=== PATIENT | male | born 1955 | race Caucasian/White ===

== ENCOUNTER 2025-04-10 05:48 | Observation (INO) | payer OTHER, SELFPAY ==
[2025-04-10] VITALS (22 sets, daily range): BP systolic 99–146; BP diastolic 66–97; PULSE 50–97; BMI 25.3; BMI 25.0
[2025-04-10 02:14] LABS: Glucose - Point of Care 98 mg/dl (70-99)
[2025-04-10 02:21] LABS: Hematocrit 40.8 % (39.0-52.0); Hemoglobin 13.6 g/dL (13.0-18.0); Mean Corp Hgb Conc. 33.3 g/dL (33.0-37.0); Mean Corpuscular Volume 88.3 fL (80.0-94.0); Nucleated Red Blood Cells % 0 % (-); Platelet Count 215 10^3/uL (130-400); Red Cell Dist. Width 13.2 % (11.5-14.5)
[2025-04-10 02:29] LABS: INR 1.10; PT 14.4 Sec (11.4-14.6)
[2025-04-10 02:30] LABS: APTT 24.3 Sec (23.4-35.0)
[2025-04-10 02:33] LABS: ALT (SGPT) 18 U/L (0-50); AST (SGOT) 21 U/L (17-59); Albumin 4.5 g/dl (3.5-5.0); Alkaline Phosphatase 58 U/L (38-126); Blood Urea Nitrogen 41 mg/dl (9-20); Calcium 9.5 mg/dl (8.4-10.2); Carbon Dioxide 26 mmol/L (22-30); Chloride 103 mmol/L (98-107); Estimated Creatinine Clearance 49 ml/min; Glucose 111 mg/dl (70-99); Magnesium 2.3 mg/dl (1.6-2.3); Potassium 3.8 mmol/L (3.5-5.1); Sodium 135 mmol/L (135-145); Total Protein 7.0 g/dl (6.3-8.2); eGFR 46.35
[2025-04-10] MEDS: NSS 1000 IV (02:42)
[2025-04-10 02:46] LABS: Troponin I < 0.012 ng/ml
[2025-04-10 03:03] LABS: TSH 6.71 uIU/ml (0.47-4.68)
--- NOTE | 2025-04-10 04:19 | ED.GENMED ---
History of Present Illness
General
Chief Complaint: Fainting/Passed Out
Source: patient
Exam Limitations: none
Time Seen by Provider: 04/10/25 02:03
Nursing documentation reviewed up to this point in time: agreed with
History of Present Illness
History of Present Illness:
Note:
CHIEF COMPLAINT(S)
Syncope.
HISTORY OF PRESENT ILLNESS
The patient is a 69-year-old male with a history of myocardial infarction and a two-vessel coronary artery bypass graft surgery, presenting after a syncopal episode. The patient reported sitting up on the side of his bed around midnight when he
began to feel lightheaded and subsequently fainted. He remembers leaning against the wall before passing out, which lasted approximately 30 seconds according to his children, who heard a loud noise but did not witness any seizure-like activity. Upon
regaining consciousness, the patient experienced nausea and vomited. He recalls consuming a can of soda, chips, and three marijuana products about an hour before the incident. The patient denies experiencing chest pain, dyspnea, abdominal pain, or
significant headache at the time of the episode. He reported feeling lightheaded upon standing up and possibly consumed less fluid than usual that day.
PAST MEDICAL AND SURGICAL HISTORY
- Myocardial infarction more than 10 years ago.
- Two-vessel coronary artery bypass graft surgery.
SOCIAL HISTORY
The patient reports using marijuana products approximately three to four times a week.
PHYSICAL EXAM
General: Alert, no acute distress.
Skin: Warm, dry.
Head: Normocephalic, atraumatic.
Neck: Supple, trachea midline.
Eye, Ears, Nose, Mouth and Throat: Oral mucosa moist.
Cardiovascular: Normal peripheral perfusion, no edema.
Respiratory: Respirations are non-labored.
Gastrointestinal: Abdomen nondistended.
Back: Normal range of motion, normal alignment.
Musculoskeletal: Normal range of motion, normal strength.
Neurological: Alert and oriented to person, place, time, and situation, no focal neurological deficit observed.
Psychiatric: Cooperative, appropriate mood & affect.
PLAN
- Check vital signs and perform orthostatic changes.
- Initiate intravenous fluids.
- Obtain blood work and laboratory investigations.
- Consider a computed tomography scan of the head based on clinical findings.
- Perform a full cardiac workup.
- Monitor the patient for improvement post fluid administration and reassess vitals.
DIFFERENTIAL DIAGNOSIS
The differential diagnosis includes, in no particular order and is not limited to:
- Vasovagal syncope
- Orthostatic hypotension
- Cardiac arrhythmia
- Transient ischemic attack
- Hypoglycemia
- Dehydration
- Neurological event (e.g., seizure)
- Cerebrovascular accident
- Myocardial infarction
- Electrolyte imbalance
Disposition:
SUMMARY OF ENCOUNTER
The patient, a 69-year-old male, was brought to the emergency department after experiencing a syncopal episode at home. While undergoing tests in the emergency department, he experienced bradycardia with a heart rate dropping to 37 beats per minute,
causing him to feel as if he was going to pass out. Given this new bradycardia and his symptoms, the patient will be admitted to the hospital for further evaluation and management of symptomatic bradycardia.
DISPOSITION
Admit.
ASSESSMENT
The patient experienced symptomatic bradycardia in the emergency department after a syncopal episode at home.
PLAN
The patient will be admitted for continued monitoring and management of bradycardia. A full cardiac workup will be conducted to identify any underlying causes.
MEDICAL DECISION MAKING
1. Number and Complexity of Problems Addressed: Chronic conditions affecting care include a history of myocardial infarction and two-vessel coronary artery bypass graft surgery. Potential differential diagnoses include vasovagal syncope, orthostatic
hypotension, cardiac arrhythmia, transient ischemic attack, neurological event, cerebrovascular accident, dehydration, and electrolyte imbalance.
2. Data:
- Category 1:
- Emergency department records reviewed.
- Tests considered during management include a full cardiac workup.
3. Risk:
The patient is being admitted for further evaluation and management due to the complexity and risk associated with his symptomatic bradycardia. The potential for cardiac arrhythmia and need for continuous monitoring increased the risk profile in
this scenario.
DIAGNOSIS
- Symptomatic Bradycardia (ICD-10: R00.1)
Phy Exam
Physical Exam
Physical Exam:
.
Course
Orders/Labs/Results
Orders:
Orders
04/10/25 02:01
Electrocardiogram (*1) Urgent
Reason for Study: Syncope
EKG- Treatment ONCE
04/10/25 02:10
Complete Blood Count/With Diff Urgent
Comprehensive Metabolic Panel Urgent
Magnesium Urgent
NT-proBNP Urgent
PTT Urgent
Prothrombin Time Urgent
TSH Urgent
Troponin I Urgent
04/10/25 02:34
Atropine Sulfate [Atropine 0.1 mg/ml Syringe] 1 mg .ROUTE .STK-MED ONE
04/10/25 02:42
0.9% Sodium Chloride 1000 ml [Nss] 1,000 ml IV BOLUS
04/10/25 04:21
CR Chest - 2 Views Urgent
Comment:
Reason For Exam: syncope
04/10/25 05:32
Admit/Transfer Patient As Directed
Co-Sign Provider:
Level of Care: Observation services
Assign to:: Telemetry
Physician / Group: Dinesh
Diagnosis: Syncope
Reason for Telemetry: Syncope
Date to Stop Telemetry: 04/12/25
Time to Stop Telemetry: 11:00
04/10/25 05:33
PRN Pain Medication Management As Directed
May give lesser potent ordered pain med per pt: Yes
preference::
Protocol:: Medication orders for pain may be administered in a
manner that supports deferring to patient preference
when the pt is:
- Requesting an ordered lesser potent pain medication.
Least to most potent pain medications are defined
as: acetaminophen < NSAID < tramadol < opioids
(morphine, oxycodone, hydromorphone).
- Requesting a lesser dose of the same medication IF
ORDERED.
- Requesting a less intrusive route of administration
if both routes are prescribed by the provider (PO <
IV).
04/10/25 05:34
Code Status As Directed
Resuscitation Status: Full Code
04/12/25 11:00
DC Protocol for Telemetry ONCE
Abnormal Lab Results
04/10/25
02:10
RBC 4.62 L 10^6/uL
(4.70-6.10)
Absolute Monos (auto) 0.8 H 10^3/uL
(0.1-0.6)
Eosinophils % 6.6 H %
(0-6)
BUN 41 H mg/dl
(9-20)
Creatinine 1.6 H mg/dL
(0.7-1.3)
Glucose 111 H mg/dl
(70-99)
TSH 6.71 H uIU/ml
(0.47-4.68)
04/10/25 02:10
04/10/25 02:10
Vital Signs
Initial and Last Documented VS:
Initial Vital Signs
Temp Pulse Resp BP Pulse Ox
97.7 F 56 15 120/97 98
04/10/25 02:02 04/10/25 02:02 04/10/25 02:02 04/10/25 02:02 04/10/25 02:02
Last Documented Vital Signs
Temp Pulse Resp BP Pulse Ox
97.7 F 66 17 124/74 97
04/10/25 02:02 04/10/25 04:15 04/10/25 04:15 04/10/25 04:00 04/10/25 04:21
*Pulse Oximetry
SaO2: 97
Oxygen Mode of Delivery: Room air
Patient hypoxic: no
*Critical Care Note
Total Time (30-74mins, 75-104mins- exclusive of procedures): Not Applicable
ED Attending Note
-
Portions of this chart may have been created with voice recognition software.� Occasional wrong word or��sound alike� substitutions may have occurred due to the inherent limitations of voice recognition software.
Discharge Plan
Departure
Patient Disposition: Admit
Date of Disposition: 04/10/25
Time of Disposition: 04:24
Presentation/result/management discussed w/ accepting MD/DO: Hospitalist
Discharge Problem:
Symptomatic bradycardia, Syncope and collapse
Prescriptions:
No Action
ropinirole 1 mg Tablet
1 mg PO TID
clopidogrel [Plavix] 75 mg Tablet
75 mg PO DAILY
triamterene-hydrochlorothiazid 37.5-25 mg Tablet
1 tab PO DAILY
bupropion HCl 450 mg Tablet Extended Release 24 Hr
450 mg PO DAILY
losartan 50 mg Tablet
50 mg PO DAILY
simvastatin 20 mg Tablet
20 mg PO HS
docusate sodium [Colace] 100 mg Capsule
100 mg PO DAILY
propranolol [Inderal] 20 mg Tablet
20 mg PO DAILY
omeprazole 20 mg Tablet,Delayed Release (Dr/Ec)
20 mg PO DAILY
Referrals:
Spenser Ramirez MD [Family Provider, Internal Medicine]
Interventions
Interventions:
*Risk Screen - Suicide Last Done: 04/10/25 02:08
*General Assessment Last Done: 04/10/25 02:08
*Neglect/Abuse Screening Last Done: 04/10/25 02:08
*ED- Fall Risk Assessment Last Done: 04/10/25 02:08
*ED COVID-19 Vaccine History Last Done: 04/10/25 02:08
*ED Influenza Vaccine History Last Done: 04/10/25 02:08
ED- Cardiac Assessment Last Done: 04/10/25 02:08
ED- Neurological Assessment Last Done: 04/10/25 02:08
Discharge Date and Time
Print Language: JORDANIAN
--- NOTE | 2025-04-10 05:36 | HPS.HSE ---
Family Physician
-
Family Physician: Spenser Ramirez
Chief Complaint
-
Syncope
History of Present Illness
Patient is a 69y M with PMH significant for ASCVD and hypertension who presents to ED complaining of syncopal episode at home. Patient is visiting family locally. His daughter has a baby and patient woke in the middle of the night
tonight to assist with care. He got up and felt somewhat lightheaded. He stood and then slumped against a door frame and passed out. He came to moments later, felt very nauseated and had a few episodes of emesis. Patient continued to feel
lightheaded and nauseated and presented to the ED for further evaluation.
He denies any chest pain, palpitations, dyspnea, etc.
He denies any prior h/o similar symptoms / episodes.
While resting comfortably / sleeping here in the ED - patient was noted to have a heart rate into the 30s.
At the time of my exam he feels much improved from prior. He is tired but otherwise feels well. His pulse has been consistently in the 60s / 70s.
Medical History
Past Medical History
Past Medical History: Reports Other
Additional Past Medical History:
ASCVD
Hypertension
GERD
Anxiety / Depression
Benign Tremors
Restless Leg Syndrome
Past Surgical History: Reports Other
Additional Past Surgical History:
PTCA with eStent (x 2)
CABG x 2
T&A
Social History
Tobacco: Vaping (Marijuana vape occasionally)
Alcohol: None
Drug: Marijuana
Family History
Family History: Not pertinent
Allergies / Home Medications
Allergies reflects when Allergies were last updated in etouches.
Home Medications with original date entered in etouches
Allergy/Medication List:
Allergies
Allergy/AdvReac Type Severity Reaction Status Date / Time
Penicillins Allergy Mild Rash Verified 04/10/25 02:31
Home Medications
bupropion HCl 450 mg 24 hr tablet, extended release 450 mg PO DAILY 04/10/25
clopidogrel 75 mg tablet (Plavix) 75 mg PO DAILY 04/10/25
docusate sodium 100 mg capsule (Colace) 100 mg PO DAILY 04/10/25
losartan 50 mg tablet 50 mg PO DAILY 04/10/25
omeprazole 20 mg tablet,delayed release 20 mg PO DAILY 04/10/25
propranolol 20 mg tablet 20 mg PO DAILY 04/10/25
ropinirole 1 mg tablet 1 mg PO TID 04/10/25
simvastatin 20 mg tablet 20 mg PO HS 04/10/25
triamterene 37.5 mg-hydrochlorothiazide 25 mg tablet 1 tab PO DAILY 04/10/25
Review of Systems
-
History Source: Patient
A 12 point ROS was completed and negative except as noted: Yes
Constitutional: Reports Fatigue; Denies Fever or Chills
EENT: Denies Sore Throat
Respiratory: Denies Cough or Trouble Breathing
Cardiac: Reports Syncope; Denies Chest Pain, Diaphoresis or Palpitations
Abdomen/GI: Reports Nausea and Vomiting; Denies Abdominal Pain or Diarrhea
: Denies Dysuria or Flank Pain
Musculoskeletal: Denies Joint Pain or Edema
Neurological: Reports Dizzy; Denies Headache
Psych: Denies Depression or Anxiety
Physical Exam
Vital Signs
Vital Signs
Temp Pulse Resp BP Pulse Ox
97.7 F 66 17 124/74 97
04/10/25 02:02 04/10/25 04:15 04/10/25 04:15 04/10/25 04:00 04/10/25 04:21
Physical Exam
General: Other (69y M in no acute distress.)
HEENT: Moist mucous membranes and PERRLA
Respiratory: Clear; No Wheezes, Rales or Rhonchi
Cardiac: S1/S2 and Regular Rhythm; No Murmur
GI: Soft, Non Tender, Non Distended and Normal Bowel Sounds
Musculoskeletal: No Clubbing, No Cyanosis and No Edema
Neuro: AO x 3
Laboratory Results
-
04/10/25 02:10
04/10/25 02:10
Laboratory Results
PT 14.4 Sec (11.4-14.6) 04/10/25 02:10
INR 1.10 04/10/25 02:10
APTT 24.3 Sec (23.4-35.0) 04/10/25 02:10
Total Bilirubin 0.6 mg/dl (0.2-1.3) 04/10/25 02:10
AST 21 U/L (17-59) 04/10/25 02:10
ALT 18 U/L (0-50) 04/10/25 02:10
Alkaline Phosphatase 58 U/L (38-126) 04/10/25 02:10
Troponin I < 0.012 ng/ml 04/10/25 02:10
Impression/Plan
-
A/P: Patient is a 69y M with PMH significant for ASCVD and hypertension who presents to ED for evaluation after syncopal event in the middle of the night.
Syncope
- Observe overnight for further evaluation and treatment.
- Likely vasovagal episode with contributions from fatigue / waking in the middle of the night / HS ropinirole dose / etc.
- Heart rate into the 30s during sleep here in the ED - otherwise has been consistently 60s-70s.
- Feels well at present.
- Monitor on tele for now.
- Hold AM Inderal.
- Continue IVF support.
- TSH mildly elevated - follow-up Free T4.
- PT eval for gait safety in AM.
- Cardiology evaluation if additional symptoms, recurrent bradycardia, etc.
Renal Insufficiency
- ? BEN v CKD. No prior labs for comparison.
- Holding losartan and Dyazide acutely.
- IVFs as noted above.
- Follow for changes in SCr.
ASCVD
- Stable. No chest pain. EKG unremarkable.
- Continue current medications including Plavix, statin, etc.
Benign Hypertension
- Holding meds as noted above.
- Follow for changes in BP.
GERD
- Stable. Continue PPI.
Anxiety / Depression
- Stable. Continue Wellbutrin.
RLS / Tremor
- Continue ropinirole for now.
- Hold Inderal acutely and monitor for further bradycardia.
DVT Prophylaxis: SCDs
Code Status: Full
[2025-04-10] MEDS: PROTONIX 40 MG PO (10:05)
[2025-04-10] MEDS: PLAVIX 75 MG PO (10:05)
[2025-04-10] MEDS: REQUIP 1 MG PO ×3 (10:06→21:22)
[2025-04-10] MEDS: COLACE 100 MG PO (10:06)
[2025-04-10] MEDS: WELLBUTRIN XL (24 hour extended release) 450 MG PO (10:06)
[2025-04-10] MEDS: LR 1000 IV ×2 (12:01→21:21)
--- NOTE | 2025-04-10 12:27 | W.PN.UPDATE ---
Update Note
Progress Note Update
vasovagal vs orthostatic hypotension vs though less likely symptomatic bradycardia (low 30's though sleeping/falling asleep)
monitor on tele
check 2d echo
tsh 6.71, ft4 pending
may need ilr/holter
cards consult
nocturnal bradycardia
follow up on t4, if consistent with hypothyroid then start levothyroxine
stop bang at least 5pts, high risk of romie
previously notified that he should have a sleep study but did not due to covid and did not follow up
hx of rls, on ropinirole, makes romie higher
monitor on tele
cards
2d echo
outpt sleep medicine follow up for in-lab sleep study vs home study
hold av-dandre blocking agents
hld
continue statin
cad s/p cabg
contnue statin, and plavix
hold bb unless if rec by cards to resume
htn
continue antihypertensives
marijuana/thc use disorder
discussed cessation
gerd
continue ppi
anxiety/depression
continue wellbutrin
--- NOTE | 2025-04-10 12:34 | CM ---
Reviewed chart, pt lives alone in apartment in [place], is from his . Building has elevator. Was at his son's house in [place] prior to admission.
Independent in ADLs, personal care and ambulation at baseline. 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
He confirms he has insurance through work but did not have the card with him.
Confirms prescription coverage.
Hx VN in past, no hx SNF
PCP: Spenser Ramirez at [facility]
Pharmacy: [facility]
Anticipate discharge home no needs, CM will continue to follow.
--- NOTE | 2025-04-10 13:31 | CON.CAR ---
Consultation
Consultation Request
Date/Time Consultation Requested: 04/10/2025 0923
Date/Time Consultation Performed: 04/10/2025 1200
Requesting Provider: Bob
Performing Provider: Kristi
Reason for Consultation: Syncope
Medical History
-
Chief Complaint: Syncope
History of Present Illness:
Patient is a pleasant 69-year-old male with a past medical history significant for hypertension, hyperlipidemia, CAD with prior CABG and subsequent PCI most recently 2017, GERD, suspected sleep apnea, restless leg syndrome who presented following a
syncopal episode at home. Patient reports that he had gotten up quickly from a seated position and felt tunnel vision lightheaded dizzy and lost consciousness. Patient stated that his family reported he had lost consciousness for 30 seconds. Upon
arousal, patient was not confused and had no significant trauma however experience significant nausea, vomiting. Patient presented to the emergency department with improvement of symptoms. Patient noted initial lightheadedness on arrival but that
resolved quickly. Patient has reported no chest pain, shortness of breath, lightheadedness, dizziness, near-syncope syncope or weakness since admission to the hospital. Initial evaluation demonstrates an EKG with sinus rhythm without significant
ST-T abnormality with noted 1�1 conduction. Review of telemetry shows sinus rhythm with 1�1 conduction with intermittent episodes of sinus slowing while sleeping but no evidence of AV block or significant pauses. Lab work demonstrates a creatinine
of 1.6 (unknown baseline), troponin negative, negative BNP. Chest x-ray shows prior CABG, no evidence of pulmonary edema, mild left lower lung scarring. Patient is a non-smoker, no alcohol, THC for restless leg. Patient is a positive family
history of early heart disease, mother, MA in her 50s. Patient previously followed with a clerical investigator out of [place] and subsequently a clerical investigator out of [place] as recent as but has not been evaluated since then. Patient currently
lives in [place] visiting family in the area. Of note, patient has significant symptoms associated with sleep apnea and was recommended testing in 2019 however never completed testing.
Past Medical History
Past Medical History: Other (See HPI)
Past Surgical History: Tonsilectomy and Other (CABG, PCI with stents)
Social History
Tobacco: Non-Smoker
Alcohol: None
Drug: Marijuana
Family History
Family History: Early CAD
Allergies / Home Medications
Allergy/AdvReac Type Severity Reaction Status Date / Time
Penicillins Allergy Mild Rash Verified 04/10/25 02:31
�Medication �Instructions �Recorded �Confirmed �Type
bupropion HCl 450 mg 24 hr tablet, 450 mg PO DAILY 04/10/25 04/10/25 History
extended release
clopidogrel 75 mg tablet (Plavix) 75 mg PO DAILY 04/10/25 04/10/25 History
docusate sodium 100 mg capsule 100 mg PO DAILY 04/10/25 04/10/25 History
(Colace)
losartan 50 mg tablet 50 mg PO DAILY 04/10/25 04/10/25 History
omeprazole 20 mg tablet,delayed 20 mg PO DAILY 04/10/25 04/10/25 History
release
propranolol 20 mg tablet 20 mg PO DAILY 04/10/25 04/10/25 History
ropinirole 1 mg tablet 1 mg PO TID 04/10/25 04/10/25 History
simvastatin 20 mg tablet 20 mg PO HS 04/10/25 04/10/25 History
triamterene 37.5 1 tab PO DAILY 04/10/25 04/10/25 History
mg-hydrochlorothiazide 25 mg tablet
Review of Systems
-
History Source: Patient
All other systems: Negative unless noted
Constitutional: No Symptoms
EENT: No Symptoms
Respiratory: No Symptoms
Cardiac: Syncope
Abdomen/GI: Abdominal Pain, Nausea and Vomiting
: No Symptoms
Musculoskeletal: No Symptoms
Skin: No Symptoms
Neurological: No Symptoms
Endocrine: No Symptoms
Hematologic/Lymphatic: No Symptoms
Physical Exam
Vital Signs
Temp Pulse Resp BP Pulse Ox
97.6 F 68 18 146/79 96
04/10/25 11:48 04/10/25 11:48 04/10/25 11:48 04/10/25 11:48 04/10/25 11:48
Lab Results
04/10/25 02:10
04/10/25 02:10
Troponin I < 0.012 ng/ml 04/10/25 02:10
Iiz-R-Nlmphtfadsa Pept 56.7 pg/ml 04/10/25 02:10
Physical exam:
GENERAL: no acute distress
EYE: sclera anicteric
NECK: Supple, no JVD, no carotid bruit appreciated
ENT: normal nose, moist mucosal membranes
CARDIAC: Regular rate and rhythm, +S1/S2, no murmur, rubs, or gallops
CHEST/PULMONARY: Normal effort, clear breath sounds
ABDOMEN: Soft, without focal tenderness or distention
NEUROLOGICAL: Alert and oriented x3
SKIN: Warm and dry, no rash
PSYCH: Normal and appropriate interaction.
Telemetry shows sinus rhythm with 1: 1 conduction; episodes of sinus slowing and overnight hours while sleeping however no evidence of AV block or significant pauses
Impression / Plan
-
Mail Handler Assistant: Unknown, last seen 2-3 years ago through [place]
Impression:
Syncope, unclear etiology, likely vasovagal
� Noted lightheadedness, dizziness with rapid position change leading to prodrome and syncope
� Followed by nausea, vomiting
� No prior history of syncope
� EKG sinus rhythm without significant ST-T abnormality; troponin, BNP negative
� Telemetry demonstrating sinus rhythm with sinus slowing during overnight hours but not present while awake; no significant pauses; no evidence of AV block
� TSH abnormal
� Elevated creatinine without known baseline possibly representing BEN
CAD with prior intervention
� Remote history of CABG
� PCI with stents 2016
� On aspirin, Plavix, beta-sadiq, statin, ARB
� Beta-sadiq currently on hold in the setting of sinus bradycardia
Sinus bradycardia, unclear if symptomatic
� No reported overt symptoms per patient unclear rhythm at time of syncope
� Episodes of sinus bradycardia on telemetry monitoring with no reported symptoms by patient
� No evidence of high degree AV block
� Abnormal TSH
� Beta-sadiq currently on hold
BEN, unknown baseline
� Creatinine 1.6
Recommendations:
� Symptomatic treatment including IV hydration and increased oral intake; syncope possibly related to vasovagal response versus dehydration versus rapid position change; patient with episodes of sinus bradycardia with noted one-to-one conduction
however no reported symptoms associated with these episodes no significant pauses and no evidence of high degree AV block. No indication at this time for permanent pacemaker placement however recommending monitoring on telemetry. If no evidence of
significant rhythm disorder during admission, would recommend discharge with event monitor and outpatient follow-up
� 2D echocardiogram to assess cardiac size, shape, function, and valvular anatomy
� Abnormal thyroid function which may also play a role, defer to primary service for evaluation and management
� Patient reporting suspected sleep apnea with prior diagnosis in 2019 with no formal assessment. Patient does report apneic episodes and significant snoring. This may play a role in sinus slowing/bradycardia overnight. Recommend sleep apnea
testing
Discussed with hospitalist, patient
Data Reviewed
-
EKG: Tracing Personally Visualized and interpreted
Radiology: Report Reviewed by me
Labs: Labs Reviewed by me
[2025-04-10] MEDS: LIPITOR 10 MG PO (21:22)
[2025-04-11 02:55] VITALS: BP 138/69
[2025-04-11 05:26] VITALS: BMI 24.7
[2025-04-11 06:06] LABS: Blood Urea Nitrogen 24 mg/dl (9-20); Calcium 9.1 mg/dl (8.4-10.2); Carbon Dioxide 26 mmol/L (22-30); Chloride 104 mmol/L (98-107); Estimated Creatinine Clearance 61 ml/min; Glucose 102 mg/dl (70-99); Hematocrit 40.8 % (39.0-52.0); Hemoglobin 13.8 g/dL (13.0-18.0); Mean Corp Hgb Conc. 33.8 g/dL (33.0-37.0); Mean Corpuscular Volume 88.9 fL (80.0-94.0); Platelet Count 194 10^3/uL (130-400); Potassium 3.9 mmol/L (3.5-5.1); Red Cell Dist. Width 13.2 % (11.5-14.5); Sodium 136 mmol/L (135-145); eGFR 59.47
[2025-04-11 07:30] VITALS: BP 139/89
[2025-04-11] MEDS: REQUIP 1 MG PO ×2 (08:15→15:18)
[2025-04-11] MEDS: COLACE 100 MG PO (08:15)
[2025-04-11] MEDS: PLAVIX 75 MG PO (08:15)
[2025-04-11] MEDS: PROTONIX 40 MG PO (08:15)
[2025-04-11] MEDS: WELLBUTRIN XL (24 hour extended release) 450 MG PO (08:17)
[2025-04-11] MEDS: LR 1000 IV (09:27)
[2025-04-11] MEDS: ZOFRAN 4 MG IV (09:49)
--- NOTE | 2025-04-11 10:31 | W.PN.CARDCBS ---
Addendum entered and electronically signed by Nguyễn Woo MD 04/11/25 11:35:
I saw and examined the patient.
The PRESS LOADER or PA's note was reviewed and I agree with the note.
Comment: General: Well developed, well nourished in NAD.
Neck: Supple, no JVD, HJR, carotids +2 B/L, no bruits bilaterally.
Heart: Non displaced PMI, RRR, no murmurs, No S3, S4, no rubs.
Lungs: Clear to auscultation bilaterally, no wheeze, rhonchi, rubs bilaterally,
normal expiratory phase.
Extremities: No clubbing, cyanosis or edema bilaterally.
Neuro: Grossly nonfocal, awake, alert and oriented x3.
Echocardiogram okay. Will place monitor. Stable cardiology status for discharge. Updated patient's son Domenico who is a cardiac anesthesiologist at [facility] [employer] [facility]. updated primary service in detail
Original Note:
Today's Communication / Plan
-
No significant pauses on tele
Echo stable.
Propranolol and losartan remain on hold. BP stable.
Rhythm star monitor to be placed prior to discharge
Follow up arranged.
Impression / Plan
-
Senior It Auditor: Previously followed at [facility], wishes to transition to [facility]
Impression:
Syncope, possibly vasovagal
CAD
h/o CABG x2
PCI 2017, details unclear
Sinus bradycardia
HTN
HLD
GERD
Restless leg syndrome
Echo 04/11/2025: EF 60-65%, trace MR, trace AR, trace TR, estimated PAP 22 mmHg
Plan:
-Presented with lightheadedness, dizziness w/ position change leading to syncope.
-No arrhythmias noted on telemetry, however does have periods of bradycardia overnight.
-No daytime pauses/bradycardia. No evidence of AV block.
-Propranolol on hold. Will discharge with 7 day Rhythm Star monitor in place.
-Echo 04/11 with preserved EF, no significant valvular disease as noted above.
-TSH 6.71 with free T4 1.17.
-Creat 1.6 on arrival, down to 1.3 in AM 04/11 s/p IVFs.
-BP stable. Losartan remains on hold.
-Continue plavix 75 mg daily, lipitor 10mg daily
-Consider OP sleep study.
-Will arrange cardiology follow up, patient wishes to transition to [facility].
Progress Note - Senior It Auditor
Subjective
Date of Service: April 11, 2025
No further dizziness/syncope.
Objective
Labs:
04/11/25 05:25
04/11/25 05:25
Labs
Hgb 13.8 g/dL (13.0-18.0) 04/11/25 05:25
Hct 40.8 % (39.0-52.0) 04/11/25 05:25
Plt Count 194 10^3/uL (130-400) 04/11/25 05:25
PT 14.4 Sec (11.4-14.6) 04/10/25 02:10
INR 1.10 04/10/25 02:10
APTT 24.3 Sec (23.4-35.0) 04/10/25 02:10
Sodium 136 mmol/L (135-145) 04/11/25 05:25
Potassium 3.9 mmol/L (3.5-5.1) 04/11/25 05:25
BUN 24 mg/dl (9-20) H 04/11/25 05:25
Creatinine 1.3 mg/dL (0.7-1.3) 04/11/25 05:25
Glucose 102 mg/dl (70-99) H 04/11/25 05:25
Troponins
04/10/25
02:10
Troponin I < 0.012
Vital Signs and I&O:
Vital Signs
Temp Pulse Resp BP Pulse Ox
97.5 F 75 16 139/89 97
04/11/25 07:30 04/11/25 07:30 04/11/25 07:30 04/11/25 07:30 04/11/25 07:30
Vital Signs
Temp Pulse Resp BP Pulse Ox
97.5 F 75 16 139/89 97
04/11/25 07:30 04/11/25 07:30 04/11/25 07:30 04/11/25 07:30 04/11/25 07:30
Intake & Output
04/09/25 04/10/25 04/11/25 04/12/25
06:59 06:59 06:59 06:59
Intake Total 955 / 955
Balance 955 / 955
Physical Exam
Physical Exam
GEN: No distress, awake, alert, oriented x3
LUNGS: RA, no wheezes
CV: SR on tele
EXT: No edema
NEURO: Gross non-focal
SKIN: No rash
[2025-04-11 11:15] VITALS: BP 143/84; BP 148/91; BP 156/84; PULSE 71; PULSE 75; PULSE 86
--- NOTE | 2025-04-11 13:46 | W.DCSUMMARY ---
Discharge Summary
Discharge Data
Date of Admission: 04/10/25
Date of Discharge: 04/11/25
-
Pending Results: No
Hospital Course
69y M with PMH significant for ASCVD and hypertension
Presented after a syncopal episode at home. Suspect likely vasovagal syncope per cardiology. Did have a brief episode of bradycardia however this was nocturnally related and cardiology did not believe this was the cause of syncope therefore did
not recommend PPM. However did recommend a 2D echocardiogram along with discharge home with a monitor and outpatient cardiology follow-up. Orthostatic vitals were normal.
Additionally, has a high STOP-BANG score which is typically correlated to sleep apnea along with nocturnal bradycardia with known history of restless leg syndrome increasing risk of sleep apnea. Therefore will recommend outpatient sleep medicine
follow-up for sleep study.
Should also be noted we did not have previous labs creatinine was 1.6 on admission. Was provided some IV fluids with improvement to 1.3. Would repeat BMP with family medical provider in 3 to 5 days to continue to follow renal function. May or may
not need outpatient nephrology follow-up if determined to be related to chronic kidney disease.
2d echo
SUMMARY
1. Ejection fraction is 60-65% by Mcmanus's method of discs.
2. Normal left ventricular size, wall thickness and systolic function. No regional wall motion abnormalities are seen.
CXR
IMPRESSION:
1. Normal heart size without radiographic evidence for acute pulmonary edema.
2. Previous CABG surgery.
3. Mild scarring/subsegmental atelectasis in the left lower lung.
Seen and examined on the day of discharge which was 04/11. No new complaints. No acute overnight events
NAD
Scleral Anicteric
MMM
No JVD
CTABL
RRR, S1/S2
Soft, NT, ND, BS+
Warm, Dry
AAOx3
Calm
More than 30 minutes spent in discharge including
Final examination of the patient
Summarizing hospital stay
Instructions for continuing care to all relevant caregivers
Preparation of discharge records, prescriptions, and referral forms
Total time spent (in minutes): 33mins
Discharge Plan
-
Patient Disposition: Home (Routine Discharge)
Discharge Diagnosis/Procedures: Vasovagal syncope
?Progressive CKD vs BEN
Condition: Good
Diet: As tolerated
Activity: As tolerated
Blood Work: BMP in 3-5days with PCP/Family doctor
Thyroid function testing in 4-6weeks with family doctor
Activity Restrictions/Additional Instructions:
Presented after a syncopal episode at home. Suspect likely vasovagal syncope per cardiology. Did have a brief episode of bradycardia however this was nocturnally related and cardiology did not believe this was the cause of syncope therefore did
not recommend PPM. However did recommend a 2D echocardiogram along with discharge home with a monitor and outpatient cardiology follow-up. Orthostatic vitals were normal.
Additionally, has a high STOP-BANG score which is typically correlated to sleep apnea along with nocturnal bradycardia with known history of restless leg syndrome increasing risk of sleep apnea. Therefore will recommend outpatient sleep medicine
follow-up for sleep study.
Should also be noted we did not have previous labs creatinine was 1.6 on admission. Was provided some IV fluids with improvement to 1.3. Would repeat BMP with family medical provider in 3 to 5 days to continue to follow renal function. May or may
not need outpatient nephrology follow-up if determined to be related to chronic kidney disease.
2d echo
SUMMARY
1. Ejection fraction is 60-65% by Mcmanus's method of discs.
2. Normal left ventricular size, wall thickness and systolic function. No regional wall motion abnormalities are seen.
CXR
IMPRESSION:
1. Normal heart size without radiographic evidence for acute pulmonary edema.
2. Previous CABG surgery.
3. Mild scarring/subsegmental atelectasis in the left lower lung.
Referrals:
Karlee Palmer PA-C [Specified Professional Personl, Cardiology] - 05/03/25 9:40 am
Referral Note: You have a cardiology follow up visit with Karlee Palmre at the [facility]. Please call with questions.
Spenser Ramirez MD [Family Provider, Internal Medicine]
Alexandria Gutierrez DO [Active, Pulmonary Medicine] - in one to two weeks
Referral Note: Sleep study
Additional Discharge Medication Instructions: Do not take propranolol unless otherwise recommended by outpatient medical biller to resume
Prescriptions:
Continued
ropinirole 1 mg Tablet
1 mg PO TID
clopidogrel [Plavix] 75 mg Tablet
75 mg PO DAILY
triamterene-hydrochlorothiazid 37.5-25 mg Tablet
1 tab PO DAILY
bupropion HCl 450 mg Tablet Extended Release 24 Hr
450 mg PO DAILY
simvastatin 20 mg Tablet
20 mg PO HS
docusate sodium [Colace] 100 mg Capsule
100 mg PO DAILY
omeprazole 20 mg Tablet,Delayed Release (Dr/Ec)
20 mg PO DAILY
Held
losartan 50 mg Tablet
50 mg PO DAILY
Hold Instructions: Resume on 04/23/25. resume if recommended by medical provider
propranolol 20 mg Tablet
20 mg PO DAILY
Hold Instructions: Resume on 05/07/25. until seen by outpatient medical biller, resume if outpatient medical biller recommends to restart
Discharge Orders:
Discharge Patient (As Directed); Ordered 04/11/25
Ordered By: Ousmane Rojas
Discharge Date and Time
Print Language: IRAQI
[2025-04-11] MEDS: FLUZONE HIGH-DOSE 2025-26 0.5 ML IM (15:16)
[2025-04-11 15:30] VITALS: BP 168/89
[2025-04-11] MEDS: LR IV (15:49)
[2025-04-11 17:42] LABS: Hepatitis C Antibody Negative (Negative)
== END 2025-04-11 16:23 | disposition home or self-care (01) ==
LOC: 3 WEST ACU 05:48
PROVIDERS: ADMITTING PHYSICIAN Hospitalist; ATTENDING PHYSICIAN Hospitalist; CONSULT PHYSICIAN Internal Medicine Cardiovascular Disease; EMERGENCY PHYSICIAN Student in an Organized Health Care Education/Training Program; FAMILY PHYSICIAN Internal Medicine
DX: R55 Syncope and collapse (principal); R00.1 Bradycardia, unspecified; N17.9 Acute kidney failure, unspecified; N18.9 Chronic kidney disease, unspecified; E78.5 Hyperlipidemia, unspecified; I25.10 Atherosclerotic heart disease of native coronary artery without angina pectoris; F12.90 Cannabis use, unspecified, uncomplicated; F17.290 Nicotine dependence, other tobacco product, uncomplicated; F32.A Depression, unspecified; F41.9 Anxiety disorder, unspecified; G25.81 Restless legs syndrome; I12.9 Hypertensive chronic kidney disease with stage 1 through stage 4 chronic kidney disease, or unspecified chronic kidney disease; I25.2 Old myocardial infarction; I77.810 Thoracic aortic ectasia; K21.9 Gastro-esophageal reflux disease without esophagitis; Z23 Encounter for immunization; Z79.899 Other long term (current) drug therapy; Z79.02 Long term (current) use of antithrombotics/antiplatelets
CPT/HCPCS: 71046; 80048; 80053; 82962; 83735; 83880; 84439; 84443; 84484; 85025; 85027; 85610; 85730; 86803; 90662; 93005; 93306; 97162; 99285; G0008; G0378